=== PATIENT | male | born 1965 | race African-American/Black ===

== ENCOUNTER 2018-12-13 22:46 | Observation (INO) ==
[2018-12-13] MEDS ORDERED: SODIUM CHLORIDE 0.9% 1,000 ML IV STA (23:11)
[2018-12-14 00:04] LABS: Basophils # 0.1 10*3/uL (0.0-0.2); Basophils % 0.8 % (0.0-0.8); Eosinophils # 0.2 10*3/uL (0.0-0.87); Eosinophils % 3.2 % (0.00-10.9); Hematocrit 39.8 VOL% (42.0-52.0); Hemoglobin 12.8 GM/DL (14.0-18.0); Immature Granulocytes % 0.2 %; Immature Granulocytes Absolute 0.01 #; Lymphocytes # 3.4 10*3/uL (1.4-4.0); Lymphocytes % 53.9 % (21.2-54.2); Mean Corpuscular HGB Conc 32.2 GM/DL (32-36); Mean Corpuscular Volume 94.8 FL (87-102); Mean Platelet Volume 9.5 FL (9.6-12.0); Monocytes % 12.9 % (1.7-12.7); Platelet Count 228 T/CUMM (130-400); Red Cell Distribution Width 14.6 % (9.3-17.3); White Blood Count 6.2 T/CUMM (4-12)
[2018-12-14 00:15] LABS: PT Patient Result 10.9 SECS; Partial Thromboplastin Time 31.7 SECS (0-40)
[2018-12-14 00:25] LABS: Alanine Aminotransferase 24 U/L (16-61); Albumin 3.7 G/DL (3.4-5.0); Alkaline Phosphatase 97 U/L (45-117); Aspartate Amino Transferase 15 U/L (0-37); Blood Urea Nitrogen 19 MG/DL (7-18); Calcium 8.6 MG/DL (8.5-10.1); Glucose 98 MG/DL (74-106); Osmolality,Calculated 282.3 MOS/KG (273-304); Salicylate < 2.8 MG/DL (2.8-20); Total Protein 7.6 G/DL (6.4-8.3); Troponin I < 0.015 NG/ML (0.00-0.045)
[2018-12-14 00:27] LABS: Acetaminophen < 2.0 UG/ML (10-30)
[2018-12-14 00:46] LABS: Eosinophils 5 % (0-10); Lymphocytes 57 % (20-55); Segmented Neutrophils 27 % (50-85); Total Cells Counted 100
[2018-12-14 00:47] LABS: Atypical Lymphocytes Few; Reactive Lymphocytes 1+
[2018-12-14 00:48] LABS: Hypochromasia Slight; Platelet Estimate Normal
[2018-12-14] MEDS ORDERED: ONDANSETRON 4 MG/2 ML VIAL IV PRN (01:54)
[2018-12-14] MEDS ORDERED: NICOTINE 21 MG/24 HR PATCH TRANSDERM PRN (01:54)
[2018-12-14] MEDS ORDERED: ACETAMINOPHEN 325 MG TABLET PO PRN (01:54)
[2018-12-14] MEDS ORDERED: SODIUM CHLORIDE 0.9% 1,000 ML IV SCH (02:00)
[2018-12-14 08:15] VITALS: BP 130/78
== END 2018-12-14 10:21 | disposition home or self-care (01) ==
LOC: EDUNIT# → EDBD → N.EDINP 22:46 → N.ED 22:46 → N.4E 12-14 02:19
PROVIDERS: ADMIT Internal Medicine; ATTEND Internal Medicine